=== PATIENT | female | born 1995 | race Caucasian/White ===

== ENCOUNTER 2017-12-15 00:49 | Emergency (ER) | payer OTHER ==
--- NOTE | 2017-12-15 01:16 | ER Document Report ---
ED General - General Chief Complaint: Abdominal Pain Stated Complaint: SHORTNESS OF BREATH Time Seen by Provider: 12/15/17 01:11 Notes: 22-year-old female presents with pain "from here to here" as she gestures in a boxlike pattern from her lower costal margins to her lower abdomen. Constant all day today and states that it hurts in the back in the same location. It is not worse on one side or the other. It is not pleuritic or exertional and is not worse with food. She has eaten today. No nausea vomiting diarrhea although she is getting over neurovirus and did have the symptoms last week. No fever. Positive runny nose no congestion shortness of breath or cough. Denies fever or malaise. Works at a daycare. Flu vaccinated. Urinary symptoms. TRAVEL OUTSIDE OF THE [place] IN LAST 30 DAYS: No - Related Data Allergies/Adverse Reactions: amoxicillin Allergy (Verified 12/15/17 00:57) clindamycin Allergy (Verified 12/15/17 00:57) Sulfa (Sulfonamide Antibiotics) Allergy (Verified 12/15/17 00:57) Past Medical History - Social History Smoking Status: Current Every Day Smoker Chew tobacco use (# tins/day): No Smoking Education Provided: Yes - The patient ED visit today was directly related to their abuse of tobacco. Frequency of alcohol use: None Drug Abuse: None Family History: None Patient has suicidal ideation: No Patient has homicidal ideation: No Renal/ Medical History: Denies: Hx Peritoneal Dialysis Past Surgical History: Reports: Hx Section Review of Systems - Review of Systems Notes: REVIEW OF SYSTEMS GEN: Denies fever, chills, weight loss ENT: Denies sore throat, nasal discharge, ear pain EYES: Denies blurry vision, eye pain, discharge CV: Denies chest pain, palpitations, edema RESP: Lower chest pain or shortness of breath g GI: Abdominal pain MSK: Denies joint pain/swelling, edema, SKIN: Denies rash, skin lesions LYMPH: Denies swollen glands/lymph nodes NEURO: Denies headache, focal weakness or numbness, dizziness PSYCH: Denies depression, suicidal or homicidal ideation PHYSICAL EXAMINATION General: No acute distress, well-nourished Head: Atraumatic, normocephalic ENT: Mouth normal, oropharynx moist, no exudates or tonsillar enlargement Eyes: Conjunctiva normal, pupils equal, lids normal Neck: No JVD, supple, no guarding CVS: Normal rate, regular rhythm, no murmurs Resp: No resp distress, equal and normal breath sounds bilaterally GI: Nondistended, soft, no tenderness to palpation, no rebound or guarding Ext: No deformities, no edema, normal range of motion in upper and lower ext Back: No CVA or midline TTP Skin: No rash, warm Lymphatic: No lymphadeopathy noted Neuro: Awake, alert. Face symmetric. GCS 15. Physical Exam - Vital signs Vitals: Temp Pulse Resp BP Pulse Ox 98.6 F 76 16 143/92 H 98 12/15/17 00:55 12/15/17 00:55 12/15/17 00:55 12/15/17 00:55 12/15/17 00:55 Course - Re-evaluation Re-evalutation: 12/15/17 01:16 Well-appearing healthy young female smoker presents with pain in lower costal margins and abdomen and matching pain in her back. Despite her pain level she appears very comfortable moves effortlessly and is nontender. Normal vitals. Differential includes bronchitis less likely flu, will rule out pneumonia with chest x-ray. We will do an EKG but I doubt ACS. Will get a urinalysis. 12/15/17 01:46 EKG and chest x-ray are negative. Vital signs remained stable and normal. 12/15/17 02:15 Urinalysis negative. Patient appears uncomfortable and moving around the bed. This can be muscle soreness. Doubt rhabdo given urine. Recommended Motrin Tylenol and follow-up with primary care in [place]. I have discussed with the patient there likely diagnosis, aftercare plan, follow -up plans and my usual and customary return precautions. They verbalized understanding of this. Work note given. - Vital Signs Vital signs: Temp Pulse Resp BP Pulse Ox 98.6 F 76 16 143/92 H 98 12/15/17 00:55 12/15/17 00:55 12/15/17 00:55 12/15/17 00:55 12/15/17 00:55 - Diagnostic Test Radiology reviewed: Image reviewed, Reports reviewed - EKG Interpretation by Me EKG shows normal: Sinus rhythm Rate: Normal Rhythm: NSR When compared to previous EKG there are: Previous EKG unavailable Additional EKG results interpreted by me: 12/15/17 02:15 No ischemic changes Discharge - Discharge Clinical Impression: Pain of truncal structure Condition: Good Disposition: HOME, SELF-CARE Additional Instructions: Pneumonia and heart attack testing was normal today. Please take ibuprofen for pain and follow-up with her primary care. If anything gets worse or changes and you need to be reevaluated please return to the ER. Referrals: ZAHRAA VILLALOBOS MD [Primary Care Provider] - Follow up as needed
--- NOTE | 2017-12-15 01:46 | RADIOLOGY REPORT (SQ) ---
EXAM DESCRIPTION: CHEST PA/LAT CLINICAL HISTORY: cp COMPARISON: None. FINDINGS: Frontal and lateral views of the chest. The cardiomediastinal silhouette has normal size and contour. No consolidation, pneumothorax, or pleural effusion. No displaced rib fractures identified. Upper abdominal soft tissues are unremarkable. Bilateral nipple piercings. IMPRESSION: 1. No acute pulmonary process identified.
[2017-12-15 02:06] LABS: AMORPHOUS SEDIMENT,URINE TRACE /HPF; APPEARANCE,URINE CLOUDY; BILIRUBIN,URINE NEGATIVE (NEGATIVE); COLOR,URINE YELLOW; GLUCOSE, URINE NEGATIVE (NEGATIVE); KETONES,URINE NEGATIVE (NEGATIVE); LEUKOCYTE ESTERASE,URINE NEGATIVE (NEGATIVE); NITRITE,URINE NEGATIVE (NEGATIVE); PROTEIN,URINE NEGATIVE (NEGATIVE); URINE SPECIFIC GRAVITY 1.012; UROBILINOGEN,URINE NEGATIVE mg/dL (<2.0)
[2017-12-15 02:17] VITALS: BP 128/89
--- NOTE | 2017-12-15 09:15 | EKG REPORT ---
SEVERITY:- NORMAL ECG - SINUS RHYTHM : Confirmed by: Aram Cerrato 15-Dec-2017 09:15:04
== END 2017-12-15 02:16 | disposition home or self-care (01) ==
LOC: ER 00:49
DX: R10.30 Lower abdominal pain, unspecified (principal); M54.9 Dorsalgia, unspecified; R06.02 Shortness of breath; F17.200 Nicotine dependence, unspecified, uncomplicated
CPT/HCPCS: 71046; 81001; 81025; 93005; 93010; 99284